=== PATIENT | male | born 1970 | race Caucasian/White ===

== ENCOUNTER 2017-12-05 11:29 | Emergency (ER) | payer BC, OTHER ==
[~2017-12-05] VITALS: Ht 175.3 cm; Wt 75.6 kg
[2017-12-05 11:36] VITALS: TEMP 36.7; Ht 175.3 cm; Wt 75.6 kg
[2017-12-05] MEDS ORDERED: FLUO40CA8 PO (11:53)
[2017-12-05 12:54] LABS: BASO % 0.3 %; BASO ABS # 0.02 K/uL (0-0.2); EOS % 0.9 %; EOS ABS # 0.07 K/uL (0-0.5); HEMATOCRIT 43.4 % (42-52); HEMOGLOBIN 14.9 g/dL (14.0-18.0); IG# 0.01 K/uL (0.00-0.02); LYMPH ABS # 1.45 K/uL (1.2-3.4); MEAN CELL VOLUME 90.4 fL (80-100); MEAN CORPUSCULAR HGB CONC 34.3 g/dl (32-36); MEAN PLATELET VOLUME 8.9 fL (7.4-10.4); MONO % 5.5 %; MONO ABS # 0.42 K/uL (0.11-0.59); NEUT % 74.2 %; NEUT ABS # 5.66 K/uL (1.4-6.5); PLATELET COUNT 295 K/uL (130-400); RED CELL DISTRIBUTION WIDTH CV 12.5 % (11.5-14.5); RED CELL DISTRIBUTION WIDTH SD 41.8 fL (36.4-46.3); WHITE BLOOD COUNT 7.63 K/uL (4.8-10.8)
[2017-12-05 13:14] LABS: ALBUMIN 4.2 gm/dl (3.4-5.0); ALT/SGPT 52 U/L (12-78); AST/SGOT 41 U/L (15-37); BLOOD UREA NITROGEN 10 mg/dl (7-18); CALCIUM 9.4 mg/dl (8.5-10.1); CARBON DIOXIDE 26 mmol/L (21-32); CREATININE 0.81 mg/dl (0.60-1.40); GLUCOSE 99 mg/dl (70-99); POTASSIUM 4.2 mmol/L (3.5-5.1); SODIUM 137 mmol/L (136-145)
[2017-12-05 13:25] LABS: ALKALINE PHOSPHATASE 75 U/L (45-117)
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
[2017-12-05] MEDS ORDERED: ACETAMINOPHEN 500 MG TAB ONE (21:17)
[2017-12-05 22:20] VITALS: BP 126/90; PULSE 71; O2SAT 98
== END 2017-12-05 22:21 | disposition short-term general hospital (02) ==
LOC: EDBD 11:29 → C.EDA 11:30
DX: R45.851 Suicidal ideations (principal); F32.9 Major depressive disorder, single episode, unspecified; Z79.899 Other long term (current) drug therapy